=== PATIENT | female | born 1955 | race Caucasian/White ===

== ENCOUNTER 2019-10-07 12:26 | Emergency (ER) | payer SELFPAY ==
--- NOTE | 2019-10-07 12:56 | ER Document Report ---
HPI - HPI Time Seen by Provider: 10/07/19 12:41 Pain Level: 3 Notes: 64-year-old female presents to the emergency room for complaints of right wrist and forearm pain after she was gardening approximately 3 days ago, thinks she was bit by a spider, today she is having erythema induration warmth to touch and pain at the wrist and forearm. Has not tried anything [id number]. Worse with time. States rash is progressive. Denies a history of MRSA. Pain is 5 out of 10, throbbing achy. Unsure if she was poked by anything. 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 Reports chills, denies fevers, chest pain,palpitations, shortness of breath, dyspnea, nausea, vomiting, diarrhea, abdominal pain, hematuria,blurred vision, double vision, loss of vision, speech changes, LH, dizziness, syncope, headaches, wheezing, ST, URI, neck pain, weakness, bowel or bladder dysfunction, saddle anesthesia, numbness or tingling in bilateral upper or lower extremities equally, muscle paralysis, weakness in bilateral upper or lower extremities equally. - REPRODUCTIVE Reproductive: DENIES: : Past Medical History - General Information source: Patient - Social History Smoking Status: Former Smoker Chew tobacco use (# tins/day): No Frequency of alcohol use: None Drug Abuse: None Family History: Reviewed & Not Pertinent Patient has suicidal ideation: No Patient has homicidal ideation: No Vertical Provider Document - CONSTITUTIONAL Agree With Documented VS: Yes Exam Limitations: No Limitations General Appearance: WD/WN Notes: PHYSICAL EXAMINATION: reviewed vital signs by RN GENERAL: Well-appearing, well-nourished and in no acute distress. HEAD: Atraumatic, normocephalic. EYES: Pupils equal round and reactive to light, extraocular movements intact, conjunctiva are normal. ENT: Nares patent, oropharynx clear without exudates. Moist mucous membranes. NECK: Normal range of motion, supple without lymphadenopathy LUNGS: Breath sounds clear to auscultation bilaterally and equal. No wheezes rales or rhonchi. HEART: Regular rate and rhythm without murmurs ABDOMEN: Soft, nontender, nondistended abdomen. No guarding, no rebound. No ma sses appreciated. Female : deferred Musculoskeletal: Normal range of motion, no pitting or edema. No cyanosis. [employer] +2 in bilateral upper extremities equally, cap refill less than 3 seconds bilateral upper extremities. digits in right and left with full aprom.. [employer] + 2 BUE equally. radial pulses + 2 BUE equally. Negative kanavels sign. No open wounds or drainage from wrist. No vascular compromise.No body crepitus or focal area of TTP. Limited ROM with flexion, extension, ulnar/radial deviation . Motor and sensory function of ulnar, radial, medial nerves intact bilaterally and equa lly. NEUROLOGICAL: Cranial nerves grossly intact. Normal speech, normal gait. Normal sensory, motor exams PSYCH: Normal mood, normal affect. SKIN: Warm, Dry, normal turgor, no rashes or lesions noted. Right wrist with erythema approximately 7 cm x 4 cm, noted warmth to touch, induration, no fl uctuance. Is not circumferential. - INFECTION CONTROL TRAVEL OUTSIDE OF THE [place] IN LAST 30 DAYS: No Course - Re-evaluation Re-evalutation: 10/07/19 13:47 Afebrile vital stable no distress. X-ray does show an old ulnar styloid fracture, chronic in appearance per radiology. Patient given 1 g IM Rocephin. Nurse's notes reviewed. Area of erythema outlined with pen timed and dated. Labs After performing a Medical Screening Examination, I estimate there is LOW risk for OPEN FRACTURE, COMPARTMENT SYNDROME, TENDON RUPTURE, ACUTE NEUROVASCULAR INJURY, or RETAINED FOREIGN BODY, thus I consider the discharge disposition reasonable. Also, there is no evidence or peritonitis, sepsis, or toxicity. I have reevaluated this patient multiple times and no significant life threatening changes are noted. The patient and I have discussed the diagnosis and risks, and we agree with discharging home with close follow-up with the understanding that symptoms and presentations can change. We also discussed returning to the Emergency Department immediately if new or worsening symptoms occur. We have discussed the symptoms which are most concerning (e.g., changing or worsening pain, fever, numbness, weakness, cool or painful digits) that necessitate immediate return. - Vital Signs Vital signs: Temp Pulse Resp BP Pulse Ox 98.4 F 79 18 151/85 H 99 10/07/19 12:40 10/07/19 12:35 10/07/19 12:40 10/07/19 12:35 10/07/19 12:40 - Laboratory Result Diagrams: 10/07/19 13:06 10/07/19 13:06 Discharge - Discharge Clinical Impression: Cellulitis of right wrist Condition: Stable Disposition: HOME, SELF-CARE Instructions: Cellulitis ([facility]), Rocephin ([facility]) Additional Instructions: Your wrist x-ray showed an old ulnar styloid fracture, no foreign body or gas seen on your x-ray. You were given 1 g Rocephin and a shot form today. You will be discharged on clindamycin 300 mg every 6 hours, your cellulitis has been outlined with a pen, please do not wash off, the redness extends approximately 1 cm around please return to the emergency room for further evaluation. Please follow-up with your doctor within the next 24 to 48 hours. Apply heat 20 minutes on 20 minutes off several times a day to the affected area. Prescriptions: Clindamycin HCl 300 mg PO Q6H #28 capsule Forms: Return to Work Referrals: TRAVIS QUIROZ MD [ACTIVE STAFF] - Follow up as needed
[2019-10-07] MEDS ORDERED: CEFTRIAXONE INJ 1000 MG VIAL IM ONE (12:57)
[2019-10-07] MEDS ORDERED: LIDOCAINE 1% INJ-PF (10 MG/ML) 30 ML SDV INJ ONE (12:57)
[2019-10-07 13:18] LABS: ABSOLUTE BASOPHILS # (AUTO) 0.1 10^3/uL (0.0-0.2); ABSOLUTE EOSINOPHILS # (AUTO) 0.2 10^3/uL (0.0-0.6); ABSOLUTE LYMPHOCYTES (AUTO) 1.8 10^3/uL (0.5-4.7); ABSOLUTE MONOCYTES (AUTO) 0.6 10^3/uL (0.1-1.4); ABSOLUTE NEUT (AUTO) 4.8 10^3/uL (1.7-8.2); BASOPHILS % (AUTO) 0.7 % (0-2); EOSINOPHILS % (AUTO) 2.4 % (0-6); HEMATOCRIT 40.5 % (36.0-47.0); HEMOGLOBIN 13.5 g/dL (12.0-15.5); LYMPHOCYTES % (AUTO) 24.5 % (13-45); MEAN CORPUSCULAR HEMOGLOBIN 29.2 pg (27.0-33.4); MEAN CORPUSCULAR HGB CONC 33.3 g/dL (32.0-36.0); MEAN CORPUSCULAR VOLUME 88 fl (80-97); PLATELET COUNT 332 10^3/uL (150-450); RED BLOOD COUNT 4.62 10^6/uL (3.72-5.28); RED CELL DISTRIBUTION WIDTH 14.5 % (11.5-14.0); SEGMENTED NEUTROPHILS % (AUTO) 64.4 % (42-78); TOTAL CELLS COUNTED % (AUTO) 100 %; WHITE BLOOD COUNT 7.4 10^3/uL (4.0-10.5)
--- NOTE | 2019-10-07 13:38 | RADIOLOGY REPORT (SQ) ---
EXAM DESCRIPTION: WRIST RIGHT 3 VIEWS COMPLETED DATE/TIME: 10/07/2019 1:14 pm REASON FOR STUDY: pain in wrist w/ cellulitis, r/o fb or gas COMPARISON: None. NUMBER OF VIEWS: Three views. TECHNIQUE: AP, lateral, and oblique radiographic images acquired of the right wrist. LIMITATIONS: None. FINDINGS: MINERALIZATION: Normal. BONES: Minimally displaced ulnar styloid fracture, chronicity uncertain. No additional acute bony ab normality. SOFT TISSUES: Soft tissue swelling about the wrist. No radiopaque foreign body. No visualize subcut aneous gas. OTHER: No other significant finding. IMPRESSION: Ulnar styloid fracture, chronicity uncertain but chronic appearing. Soft tissue swelling about the wrist. No radiopaque foreign body. No discernible subcutaneous gas. TECHNICAL DOCUMENTATION: JOB ID: [id number] [employer]- All Rights Reserved Reading location - IP/workstation name: [email or web address]
[2019-10-07 13:43] LABS: ALBUMIN 4.4 g/dL (3.5-5.0); ALKALINE PHOSPHATASE 73 U/L (38-126); ANION GAP 11 (5-19); ASPARTATE AMINO TRANSFERASE 22 U/L (14-36); BILIRUBIN,DIRECT 0.1 mg/dL (0.0-0.4); BILIRUBIN,TOTAL 0.4 mg/dL (0.2-1.3); BLOOD UREA NITROGEN 17 mg/dL (7-20); CALCIUM 9.7 mg/dL (8.4-10.2); CARBON DIOXIDE 27 mmol/L (22-30); CHLORIDE 102 mmol/L (98-107); GLUCOSE 117 mg/dL (75-110); POTASSIUM 4.1 mmol/L (3.6-5.0); TOTAL PROTEIN 7.7 g/dL (6.3-8.2)
[2019-10-07 15:34] VITALS: BP 156/64
== END 2019-10-07 15:29 | disposition home or self-care (01) ==
LOC: ER 12:26
DX: L03.113 Cellulitis of right upper limb (principal); M25.531 Pain in right wrist; M79.631 Pain in right forearm; R21 Rash and other nonspecific skin eruption; Z87.891 Personal history of nicotine dependence
CPT/HCPCS: 36415; 87040; 83605; 85025; 80053; 73110; J3490; J0696; 87150; 96372; 96374; 99282